=== PATIENT | female | born 1990 | race Caucasian/White ===

== ENCOUNTER → 2018-08-19 11:56 | Outpatient (CLI) | payer OTHER, MEDICAID, SELFPAY ==
--- NOTE | 2018-08-19 | DI.US.S_ITS ---
PROCEDURE: US PERIPH VENOUS LOW EXTREM LT INDICATIONS: LOCALIZED EDEMA TECHNIQUE: Real-time imaging, as well as color and pulse Doppler interrogation, were performed of the lower extremity deep veins from the inguinal ligament to the popliteal fossa. COMPARISON: None. FINDINGS: The common femoral, femoral and popliteal veins are normally compressible, and free of intraluminal thrombus. Color and pulse Doppler demonstrate normal phasic intraluminal flow. There is normal augmentation response to distal compression maneuver. IMPRESSION: No deep venous thrombosis identified within the left lower extremity. Dictated by: Jonnathan Goddard [facility] Interpreted: Andre Ca MD on 08/19/2018 at 13:07 Approved by: Andre Ca M.D. on 08/19/2018 at 14:29
== END ==
PROVIDERS: Visit Provider Nurse Practitioner Family
DX: R60.0 Localized edema (principal)
CPT/HCPCS: 93971

== ENCOUNTER → 2019-01-04 12:07 | Outpatient (CLI) | payer OTHER, MEDICAID, SELFPAY ==
--- NOTE | 2019-01-04 | DI.US.S_ITS ---
PROCEDURE: US PELVIC COMPLETE INDICATIONS: PAIN IN FEMALE PELVIS,IRREGULAR MENSES TECHNIQUE: Real-time scanning was performed of the pelvic organs, with image documentation. Additional endovaginal scanning was necessary due to incomplete visualization of the adnexal and endometrial structures by transabdominal scanning. COMPARISON: None. FINDINGS: Transabdominal scanning: A mild amount of free pelvic fluid is seen, which is considered to be within physiologic limits. Limited scanning through the kidneys shows no hydronephrosis. Endovaginal scanning: Uterus: Uterus is normal in size at 6.7 x 11 x 3.2 cm. The endometrium measures 17 mm in combined thickness. A small amount of fluid can be seen along the cervical canal. Ovaries: The right ovary measures 3.8 x 3.5 x 1.9 cm and demonstrates a 4 mm calcification within it. The left ovary measures 3.7 x 3.6 x 1.9 cm. The ovaries have a normal sonographic appearance. No adnexal masses are seen. IMPRESSION: No significant pelvic ultrasound abnormality is seen. The endometrial stripe measures limits of normal at 17 mm. Dictated by: Deyvi Oconnell M.D. on 01/04/2019 at 16:36 Approved by: Deyvi Oconnell M.D. on 01/04/2019 at 16:38
== END ==
PROVIDERS: PCP Nurse Practitioner Family; Visit Provider Nurse Practitioner Family
DX: R10.2 Pelvic and perineal pain (principal); N92.6 Irregular menstruation, unspecified
CPT/HCPCS: 76830; 76856

== ENCOUNTER → 2023-05-22 09:31 | Outpatient (CLI) | payer OTHER, MEDICAID, SELFPAY | LOC: RESP 09:32 | PROVIDERS: PCP Family Medicine; Referring Provider Internal Medicine Critical Care Medicine; Visit Provider Internal Medicine Critical Care Medicine | DX: R06.02 Shortness of breath (principal); Z87.891 Personal history of nicotine dependence | CPT/HCPCS: 94060; 94726; 94729 ==